=== PATIENT | female | born 1990 | race Caucasian/White ===

== ENCOUNTER 2016-04-03 14:51 | Emergency (ER) | payer OTHER ==
[~2016-04-03] VITALS: Ht 162.6 cm; Wt 99.1 kg
[~2016-04-03 14:51] MED LIST: Ascorbic Acid PO; DOCU-41 PO; FERR-74 PO; IBUP-1827 PO; Ibuprofen PO
[2016-04-03 14:53] VITALS: BP 122/81; PULSE 108; RESP 16; O2SAT 99
--- NOTE | 2016-04-03 15:16 | ED.REPORT ---
HPI-Preg Under 20 Weeks Date of Service Apr 03, 2016 ED Provider: Willie Hernández Patient is a 26 year old female who is 2 mo with a history of hyperemesis who presents to the ED after [facility]. Associated symptoms include nausea and headache. She denies fever , dysuria, or any other symptoms. This is her third . She had a UTI on 03/23/16 but is no longer on abx. Nursing Notes Stated Complaint: 2 MONTHS PREG/VOMITING Chief Complaint: Female Abdominal Pain Nursing Notes Reviewed: Yes Allergies: Coded Allergies: hydrocodone (Verified Allergy, Unknown, Hives, 04/03/16) Scheduled ([Ascorbic Acid]) 500 MG TABLET 500 MG PO DAILY Ferrous Sulfate (Feosol) 325 Mg Tablet 325 MG PO DAILY Scheduled PRN ([Ibuprofen]) 600 MG TABLET 800 MG PO Q8 PRN PRN For Pain Docusate Sodium (Colace) 100 Mg Capsule 100 MG PO BID PRN PRN For Constipation Ibuprofen (Ibuprofen) 600 Mg Tablet 600 MG PO QID PRN PRN For Pain General Time Seen by Provider: 15:16 Chief Complaint Other (Vomiting) Hx Obtained From: Patient Arrived By: Walk-in Similar Sx Previous: Yes Past Medical History Past Medical History Hyperemesis possible hyperthyroid Past Surgical History I&D Bartholin cyst Smoking History Never Smoker Ambulatory Status Independent Review of Systems Constitutional: Denies: Fever GI: Reports: Nausea, Vomiting Female: Denies: Dysuria Complete sys rev & neg: except as marked. Physical Exam Initial Vital Signs Vital Signs (First) Date Time Temp Pulse Resp B/P Pulse Ox O2 Delivery O2 Flow Rate FiO2 04/03/16 14:53 36.7 108 16 122/81 99 04/03/16 15:57 Room Air Initial VS: Reviewed Head / Eyes: Atraumatic, Normocephalic Neck: Full range of motion Respiratory: No respiratory distress Cardiovascular: Regular rate & rhythm, Heart sounds normal, Intact distal pulses Skin: Warm, Dry, No cyanosis Neurologic: Alert, Oriented, Nonfocal Psychiatric: Mood/affect normal, Behavior normal, Normal thought content General/Constitutional: Awake, Alert, Well appearing, Well developed Abdomen: Atraumatic, Soft, Non-tender Female Genitourinary: Exam deferred : Exam deferred Interpretation & Diagnostics Lab Results Interpretation Test 04/03/16 16:26 Urine Color Yellow (YELLOW) Urine Appearance Clear (CLEAR,HAZY) Urine pH 7.5 (5.0-8.0) Urine Specific [place] 1.010 (1.003-1.035) Urine Protein Negativemg/dL (NEG,TRACE) Urine Glucose (UA) Negativemg/dL (NEGATIVE) Urine Ketones 15mg/dL (NEGATIVE) Urine Occult Blood Negative (NEGATIVE) Urine Nitrite Negative (NEGATIVE) Urine Bilirubin Negative (NEGATIVE) Urine Urobilinogen Normalmg/dL (NORMAL) Urine Leukocyte Esterase Negative (NEGATIVE) Urine RBC 0-2/hpf (0-2) Urine WBC 0-5/hpf (0-5) Urine Epithelial Cells Many/hpf (NONE-MOD) Urine Crystals None seen (NONE SEEN) Urine Bacteria Moderate/hpf (NONE-FEW) Urine Hyaline Casts None/lpf (NONE) Urine Granular Casts None seen (NONE SEEN) Urine Waxy Casts None seen (NONE SEEN) Urine Red Blood Cell Casts None seen (NONE SEEN) Urine White Blood Cell Casts None seen (NONE SEEN) Urine Mucus None seen (None Seen) Urine Trichomonas None seen (NONE SEEN) Urine Yeast None (NONE SEEN) Urinalysis Comment None Urine Culture Reflexed Indicated Re-Eval/Medical Decision Re-Evaluation/Progress #1: Time of Eval: 17:34 Patient Status: Condition improved Re-Evaluation/Progress Note: Rechecked patient. Her nausea has resolved but her headache has not changed. Re-Evaluation/Progress #2: Time of Eval: 17:56 Patient Status: Condition improved Re-Evaluation/Progress Note: Headache dramatically improved with metoclopramide. Discharge & Departure Primary Impression: Hyperemesis gravidarum Additional Impression: Headache Headache type: unspecified Headache chronicity pattern: unspecified pattern Intractability: not intractable Qualified Code: R51 - Headache Disposition: Home Patient Instructions: Hyperemesis Gravidarum (DC) Additional Instructions: You received 2 L of IV fluid, Tylenol and Zofran and Reglan. Continue to drink small amounts of fluid throughout the day. Small, high-protein meals, like an ache or a piece of cheese or a piece of lean chicken breast, commonly are effective for hyperemesis. Use Zofran or metoclopramide as needed for nausea. Referrals: Layland,Erika L PA-C (PCP) Scribe Attestation Portions of this note were transcribed by Chata Goldstein. I, Dr. Hernández personally performed the history, physical exam and medical decision-making; I reviewed and confirmed the accuracy of the information in the transcribed note. Signed by: Chata Goldstein 04/03/16, 0591 copies to: Erika Garcia PA-C, Kirk H MD Apr 03, 2016 15:16 CHATA GOLDSTEIN Apr 03, 2016 15:42
[2016-04-03] MEDS ORDERED: Ondansetron 2 mg/mL 2 mL Inj IVPUSH PRN (15:25)
[2016-04-03] MEDS: 0.9% Sodium Chloride 1,000 ML IV SCH ×3 (15:38→15:54)
[2016-04-03 15:57] VITALS: BP 129/72; PULSE 91; O2SAT 100
[2016-04-03 16:38] LABS: APPEARANCE,URINE CLEAR (CLEAR,HAZY); COLOR,URINE YELLOW (YELLOW); OCCULT BLOOD,URINE NEGATIVE (NEGATIVE); PH,URINE 7.5 (5.0-8.0); UROBILINOGEN,URINE NORMAL (NORMAL)
[2016-04-03] MEDS ORDERED: MetoCLOpramide 5 mg/mL 2 mL Inj IVPUSH ONE (17:20)
[2016-04-03] MEDS ORDERED: MTC5T PO (18:00)
[2016-04-03] MEDS ORDERED: ONDA4TAB9 PO (18:00)
[2016-04-03 18:06] VITALS: BP 116/76; PULSE 100; O2SAT 95
== END 2016-04-03 18:07 | disposition home or self-care (01) ==
LOC: SED 14:51
DX: O21.0 Mild hyperemesis gravidarum (principal); R51 Headache; Z3A.08 8 weeks gestation of pregnancy; Z88.5 Allergy status to narcotic agent
CPT/HCPCS: 81000; 87086; 87088; 96361; 96374; 96375; 99284; J2405; J2765; J7030